=== PATIENT | female | born 1965 | race Caucasian/White ===

== ENCOUNTER 2025-02-15 13:29 | Emergency (ER) | payer BC, SELFPAY ==
[2025-02-15] VITALS (7 sets, daily range): BP systolic 96–141; BP diastolic 60–85; BMI 39.9
--- NOTE | 2025-02-15 14:05 | ED.GENMED ---
History of Present Illness
<aMrilu Arreola PA-C - Last Filed: 02/15/25 20:39>
General
Chief Complaint: Rectal Bleeding
Source: patient
Exam Limitations: none
Time Seen by Provider: 02/15/25 13:55
History of Present Illness
History of Present Illness:
59yoF with a history of hypertension presenting for evaluation of rectal bleeding. Patient ate at a restaurant for dinner last night and had lobster ravioli with crab. She started to experience abdominal pain and diarrhea last night. She then
developed rectal bleeding. She reports passing moderate-sized clots every 30 minutes over the past several hours. Stools are dark red with mucous. She continues to have some upper abdominal pain which seems improved. She denies any fevers or
vomiting. Last colonoscopy was 5-6 years ago which showed benign polyps. Only prior abdominal surgery is a hysterectomy.
Phy Exam
<Marilu Arreola PA-C - Last Filed: 02/15/25 20:39>
General Physical Exam
General Presentation: well appearing and no apparent distress
General Skin: warm and dry
General Habitus: normal
General Mental: alert
ENT Exam
ENT Exam: normocephalic
Gastrointestinal Exam
Gastrointestinal Exam: normal bowel sounds, soft, non distended and other (+Tenderness throughout upper abdomen. Abdomen soft, non-distended. No rebound or guarding.)
Stool: other (Mucous obtained on digital rectal exam with red streaks. No external hemorrhoids.)
Neurological Exam
Neurological Exam: alert
Nicolasa Coma Scale
Eye Opening: Spontaneous
Verbal Response: Oriented
Motor Response: Obeys Commands
GCS Total Score: 15
Skin Exam
Skin Exam: normal color and warm/dry
Psychiatric Exam
Psychiatric Exam: normal mood/affect
<Landon Mandujano MD - Last Filed: 02/15/25 17:16>
Nebo Coma Scale
GCS Total Score: 15
Course
<Marilu Arreola PA-C - Last Filed: 02/15/25 20:39>
Orders/Labs/Results
Orders:
Orders
02/15/25 14:04
CT Abd/pelvis W Iv Cont Urgent
Comment:
Reason For Exam: upper abd pain, hematochezia
0.9% Sodium Chloride 1000 ml [Nss] 1,000 ml IV BOLUS
02/15/25 14:15
Type+Screen Urgent
Complete Blood Count/With Diff Urgent
Comprehensive Metabolic Panel Urgent
Lactate Level [Lactic Acid] Urgent
Lipase Urgent
Comment: ADD ON
PTT Urgent
Prothrombin Time Urgent
02/15/25 14:17
Add On- LAB Urgent
Tests Added?: Lipase
02/15/25 14:33
ABO2 Urgent
BBK Wristband Number:
Associate notified that ABO2 has been ordered: RODOLFO
Date: 02/15/25
Time: 14:24
D[employer]el Technology Instructor ID: [id number]
02/15/25 17:09
Piperacillin/Tazo 3.375 Gram [Zosyn] 3.375 gram in 50 ml IV NOW
Abnormal Lab Results
02/15/25
14:15
WBC 11.6 H 10^3/uL
(4.8-10.8)
MPV 10.8 H fL
(7.4-10.4)
Absolute Neuts (auto) 8.1 H 10^3/uL
(1.4-6.5)
Absolute Monos (auto) 0.8 H 10^3/uL
(0.1-0.6)
PT 14.7 H Sec
(11.4-14.6)
Chloride 111 H mmol/L
(98-107)
Carbon Dioxide 21 L mmol/L
(22-30)
Glucose 109 H mg/dl
(70-99)
Lactic Acid 2.2 H mmol/L
(0.7-2.0)
AST 47 H U/L
(14-36)
ALT 52 H U/L
(0-35)
02/15/25 14:15
02/15/25 14:15
Vital Signs
Initial and Last Documented VS:
Initial Vital Signs
Temp Pulse Resp BP Pulse Ox
98.9 F 106 16 141/85 98
02/15/25 13:35 02/15/25 13:35 02/15/25 13:35 02/15/25 13:35 02/15/25 13:35
Last Documented Vital Signs
Temp Pulse Resp BP Pulse Ox
98.5 F 82 21 114/63 98
02/15/25 16:10 02/15/25 17:15 02/15/25 17:15 02/15/25 17:00 02/15/25 16:10
<Landon Mandujano MD - Last Filed: 02/15/25 17:16>
Orders/Labs/Results
Orders:
Orders
02/15/25 14:04
CT Abd/pelvis W Iv Cont Urgent
Comment:
Reason For Exam: upper abd pain, hematochezia
0.9% Sodium Chloride 1000 ml [Nss] 1,000 ml IV BOLUS
02/15/25 14:15
Type+Screen Urgent
Complete Blood Count/With Diff Urgent
Comprehensive Metabolic Panel Urgent
Lactate Level [Lactic Acid] Urgent
Lipase Urgent
Comment: ADD ON
PTT Urgent
Prothrombin Time Urgent
02/15/25 14:17
Add On- LAB Urgent
Tests Added?: Lipase
02/15/25 14:33
ABO2 Urgent
BBK Wristband Number:
Associate notified that ABO2 has been ordered: RODOLFO
Date: 02/15/25
Time: 14:24
Diesel Technology Instructor ID: [id number]
02/15/25 17:09
Piperacillin/Tazo 3.375 Gram [Zosyn] 3.375 gram in 50 ml IV NOW
Abnormal Lab Results
02/15/25
14:15
WBC 11.6 H 10^3/uL
(4.8-10.8)
MPV 10.8 H fL
(7.4-10.4)
Absolute Neuts (auto) 8.1 H 10^3/uL
(1.4-6.5)
Absolute Monos (auto) 0.8 H 10^3/uL
(0.1-0.6)
PT 14.7 H Sec
(11.4-14.6)
Chloride 111 H mmol/L
(98-107)
Carbon Dioxide 21 L mmol/L
(22-30)
Glucose 109 H mg/dl
(70-99)
Lactic Acid 2.2 H mmol/L
(0.7-2.0)
AST 47 H U/L
(14-36)
ALT 52 H U/L
(0-35)
02/15/25 14:15
02/15/25 14:15
Vital Signs
Initial and Last Documented VS:
Initial Vital Signs
Temp Pulse Resp BP Pulse Ox
98.9 F 106 16 141/85 98
02/15/25 13:35 02/15/25 13:35 02/15/25 13:35 02/15/25 13:35 02/15/25 13:35
Last Documented Vital Signs
Temp Pulse Resp BP Pulse Ox
98.5 F 82 21 114/63 98
02/15/25 16:10 02/15/25 17:15 02/15/25 17:15 02/15/25 17:00 02/15/25 16:10
<Marilu Arreola PA-C - Last Filed: 02/15/25 20:39>
MDM/Problems Addressed
Differential Diagnosis Includes:
59yoF here with abd pain, rectal bleeding, and diarrhea since last night. Ate seafood at a restaurant. VSS. She is well appearing in no distress. No signs of peritonitis on abdominal exam. Mucous obtained on rectal exam with red streaks.
Differential diagnosis includes but is not limited to: Gastroenteritis, colitis, diverticular bleeding, hemorrhoidal bleeding
Initial ED plan: Check abdominal labs, lactate, blood type, and CT abdomen. IV fluid bolus.
<Marilu Arreola PA-C - Last Filed: 02/15/25 20:39>
*Critical Care Note
Total Time (30-74mins, 75-104mins- exclusive of procedures): Not Applicable
ED Attending Note
<Marilu Arreola PA-C - Last Filed: 02/15/25 20:39>
-
Portions of this chart may have been created with voice recognition software.� Occasional wrong word or��sound alike� substitutions may have occurred due to the inherent limitations of voice recognition software.
<Landon Mandujano MD - Last Filed: 02/15/25 17:16>
ED Attending Note
Patient seen and examined by attending physician: Yes
ED Attending Note:
I have seen and evaluated the patient with a [id number] encounter. I have spoken to the advance practicer provider and involved in the medical history, the physical exam, medical decision making.
Evaluation and management service: agree unless noted differently below.
Results interpretation: agree unless noted differently below.
Focused HPI: 59-year-old female with history as noted presents to the ER for evaluation of diarrhea with rectal bleeding. Patient reports that last night around 11 PM she started having nausea with profuse diarrhea and was up all night with the
symptoms. She would have some crampy abdominal pain associated with it. She says around 2 AM she started noticing some blood with her stools and is continued through the morning. Came to the ER for evaluation. She denies any chest pain,
shortness of breath, dizziness/lightheadedness. Her last bowel movement was around 11 AM. She has been here in the emergency room for few hours now has not had another episode and says that she feels much better--symptoms have resolved. She
thinks she may have had food poisoning.
Physical exam: Awake alert no distress. She was initially tachycardic vital signs have all normalized by my assessment. Her abdomen is soft and nontender to deep palpation. She did have some blood mixed with brown stool on rectal exam according
to PA note.
Medical Decision Makin-year-old female presents with diarrheal illness associated with rectal bleeding. Vitals and exam as above. Fortunately her hemoglobin is normal at 14.5. She is not on any blood thinners. Her CMP shows no clinically
significant abnormalities. CT abdomen pelvis did show colitis. Initially plan was to admit patient for observation, symptom control and serial hemoglobins however after initial admission and assessment by hospitalist team patient said that she is
feeling completely better and wishes to go home. I had a long discussion with the patient I explained the diagnosis and results. Spoke about risks and benefits of discharge she feels comfortable going home and following up with her primary doctor
and GI follow-up. Using shared decision making we will discharge in keeping with her wishes. We spoke in detail about return precautions and all questions were answered.
Discharge Plan
Departure
Patient Disposition: Home (Routine Discharge)
Date of Disposition: 02/15/25
Time of Disposition: 17:11
Patient with high blood pressure during this ER visit?: Yes
Discharge Problem:
Rectal bleeding, Colitis
Referrals:
Gino King, [Family Provider] - Follow up in 5-7 days
Activity Restrictions/Additional Instructions:
Thank you for visiting the Emergency Department at [facility].
1. Please schedule a follow up appointment as directed. Call first thing tomorrow morning to make an appointment.
2. If indicated, please take your medications as instructed and indicated on discharge paperwork.
3. If any of your symptoms do not improve, or persist, or become more severe within 6-12 hours, please return to the emergency department for further care.
4. Please return to the emergency department if you develop a headache, neck pain/stiffness, fever greater than 100.4F, chest pain, shortness of breath, persistent nausea, vomiting, slurred speech, difficulty walking, numbness/tingling, weakness,
signs of infection or any other symptoms that are worrisome to you.
Please call [phone] if you have any questions.
Interventions
Interventions:
*Risk Screen - Suicide Last Done: 02/15/25 13:35
*General Assessment Last Done: 02/15/25 14:19
*Neglect/Abuse Screening Last Done: 02/15/25 13:35
*ED- Fall Risk Assessment Last Done: 02/15/25 14:19
*ED COVID-19 Vaccine History Last Done: 02/15/25 14:19
*Nursing Disposition Last Done: 02/15/25 17:24
HT-Kzbzci-Rkojbrjubj Assessment Last Done: 02/15/25 14:19
ED- Cardiac Assessment Last Done: 02/15/25 14:19
ED- Pulmonary Assessment Last Done: 02/15/25 14:19
Discharge Date and Time
Discharge Date/Time: 02/15/25 17:27
Print Language: ZAMBIAN
[2025-02-15] MEDS: NSS 1000 IV (14:24)
[2025-02-15 14:27] LABS: % Basophils 0.3 % (0-2); % Immature Granulocytes 0.3 % (0-0.5); % Lymphocytes 22.2 % (20.5-51.1); % Monocytes 6.5 % (1.7-9.3); % Neutrophils 69.7 % (42.2-75.2); Absolute Eosinophils 0.1 10^3/uL (0-0.7); Absolute Lymphocytes 2.6 10^3/uL (1.2-3.4); Absolute Monocytes 0.8 10^3/uL (0.1-0.6); Absolute Neutrophils 8.1 10^3/uL (1.4-6.5); Hematocrit 41.2 % (37.0-47.0); Hemoglobin 14.5 g/dL (12.0-16.0); Mean Corp Hgb Conc. 35.2 g/dL (33.0-37.0); Mean Corpuscular Hgb 30.3 pg (27.0-31.0); Mean Platelet Volume 10.8 fL (7.4-10.4); Nucleated Red Blood Cells % 0 %; Platelet Count 149 10^3/uL (130-400); Red Blood Cell Count 4.79 10^6/uL (4.20-5.40); Red Cell Dist. Width 13.3 % (11.5-14.5); White Blood Cell Count 11.6 10^3/uL (4.8-10.8)
[2025-02-15 14:39] LABS: Lactic Acid 2.2 mmol/L (0.7-2.0)
[2025-02-15 14:40] LABS: ALT (SGPT) 52 U/L (0-35); AST (SGOT) 47 U/L (14-36); Albumin 4.2 g/dl (3.5-5.0); Alkaline Phosphatase 125 U/L (38-126); Blood Urea Nitrogen 14 mg/dl (7-17); Calcium 9.5 mg/dl (8.4-10.2); Carbon Dioxide 21 mmol/L (22-30); Chloride 111 mmol/L (98-107); Estimated Creatinine Clearance > 125 ml/min; Glucose 109 mg/dl (70-99); Sodium 142 mmol/L (135-145); Total Protein 8.2 g/dl (6.3-8.2); eGFR > 60.00
[2025-02-15 14:48] LABS: Lipase 48 U/L (23-300)
[2025-02-15 14:49] LABS: INR 1.12; PT 14.7 Sec (11.4-14.6)
[2025-02-15 14:50] LABS: APTT 32.6 Sec (23.4-35.0)
== END 2025-02-15 17:27 | disposition home or self-care (01) ==
LOC: EMR 13:29
PROVIDERS: Physician Assistant; EMERGENCY PHYSICIAN Emergency Medicine; FAMILY PHYSICIAN Internal Medicine
DX: K52.9 Noninfective gastroenteritis and colitis, unspecified (principal); K62.5 Hemorrhage of anus and rectum; R10.10 Upper abdominal pain, unspecified; R11.0 Nausea; R19.7 Diarrhea, unspecified; I10 Essential (primary) hypertension
CPT/HCPCS: 99284; 96360; 74177; 80053; 83605; 83690; 85025; 85610; 85730; 86850; 86900; 86901; Q9967